=== PATIENT | female | born 1985 | race Caucasian/White ===

== ENCOUNTER 2019-07-31 04:18 | Emergency (ER) | payer OTHER ==
[~2019-07-31] VITALS: Ht 149.9 cm; Wt 60.6 kg
[~2019-07-31 04:18] MED LIST: FLUO40CA10 PO; QUET50TA22 PO
[2019-07-31 04:20] VITALS: Ht 149.9 cm; Wt 60.6 kg
[2019-07-31] MEDS ORDERED: LORAZEPAM 2 MG INJ IM STA (04:54)
[2019-07-31] MEDS ORDERED: OLANZAPINE 10 MG VIAL IM ONE (05:00)
[2019-07-31 06:37] VITALS: BP 115/81; PULSE 94; RESP 16
== END 2019-07-31 10:30 | disposition home or self-care (01) ==
LOC: FTE 04:18 → E/R 10:30
DX: F23 Brief psychotic disorder (principal); F17.210 Nicotine dependence, cigarettes, uncomplicated; F15.10 Other stimulant abuse, uncomplicated; F12.10 Cannabis abuse, uncomplicated; R40.2142 Coma scale, eyes open, spontaneous, at arrival to emergency department; R40.2252 Coma scale, best verbal response, oriented, at arrival to emergency department; R40.2362 Coma scale, best motor response, obeys commands, at arrival to emergency department
CPT/HCPCS: 36415; 80053; 80307; 84703; 85025; 96372; J2060; Z7502; Z7610